=== PATIENT | male | born 1965 | race Hispanic/Latino ===

== ENCOUNTER 2016-10-06 13:10 | Day surgery (SDC) | payer OTHER ==
[~2016-10-06] VITALS: Ht 165.1 cm; Wt 74.8 kg
[~2016-10-06 13:10] MED LIST: 0.9% Sodium Chloride 1,000 ML IV SCH; ACET325T51 PO; CITA20TA11 PO; CYCL5TAB PO; NAPR500T5 PO; Sodium Chloride LOK Flush 10 mL Syringe IV PRN; TRAZ-115 PO; fentaNYL-PF 50 mCg/mL 2 mL Inj IVPUSH PRN
[2016-10-06 13:51] VITALS: BP 127/93; PULSE 78; RESP 14; O2SAT 96
[2016-10-06 15:15] VITALS: BP 132/83; PULSE 82; RESP 16; O2SAT 94
[2016-10-06 15:25] VITALS: BP 134/85; PULSE 87; RESP 16; O2SAT 95
--- NOTE | 2016-10-06 15:53 | ENDO ---
[address] [address] ENDOSCOPY PROCEDURE PATIENT: LONG PAREDES : 1965 MR#: [id number] ADMIT: 10/06/2016 JOB ID: [id number] DATE OF SERVICE: 10/06/2016 PROCEDURE PERFORMED: Colonoscopy. INDICATIONS: Screening. ASA CLASSIFICATION: The patient's ASA classification is II. MALLAMPATI SCORE: Mallampati score was 2. MEDICATIONS: 1. Versed 5 mg. 2. Fentanyl 100 mcg. INSTRUMENT USED: [id number]. PREPARATION QUALITY: Good. PROCEDURE DETAILS: After informed consent was obtained, the patient was brought into the GI suite, where he was placed on oxygen via nasal cannula and monitored with continuous pulse oximeter, telemetry, and blood pressure monitoring. A time-out was performed. Then, he was placed in the left lateral decubitus position and medications were administered for sedation. Digital rectal exam was performed which was unremarkable. The colonoscope was then inserted into the rectum and advanced under direct visualization to the cecum, which was identified by the presence of the ileocecal valve and appendiceal orifice. Once the cecum was reached, the colonoscope was withdrawn back into the rectum, as the mucosa and lumen were examined. In the rectum, retroflexion was performed. Following retroflexion, remaining air in the rectum was suctioned, and procedure was completed. FINDINGS: 1. In the ascending colon, there was an approximately 4 mm sessile polyp that was removed with a cold snare. 2. Just distal to this polyp there was a diminutive polyp that was removed with cold biopsy forceps. 3. In the transverse colon, there was an approximately 6 mm sessile polyp that was removed with a hot snare. A few scattered diverticula were seen in the sigmoid colon. 4. Retroflexed views in the rectum revealed small internal hemorrhoids. IMPRESSION: 1. Two ascending colon polyps. 2. Transverse colon polyp. 3. Sigmoid diverticulosis. 4. Small internal hemorrhoids. RECOMMENDATIONS: 1. Avoid NSAIDs and anticoagulants for 72 hours. 2. Fiber-rich diet. 3. Repeat colonoscopy pending polyp pathology results. COMPLICATIONS: None. ESTIMATED BLOOD LOSS: Less than 5 mL.
--- NOTE | 2016-10-09 12:36 | PATH ---
SURGICAL PATHOLOGY Attending Physician:Kinza Jansen CASE STATUS: Signed Out PATIENT NAME: LOGN PAREDES PID: [id number] : 1965 DATE COLLECTED:10/06/2016 22:44 SPECIMEN: 1: Colon, Biopsy 2: Colon, Biopsy CLINICAL HISTORY: 1). ASCENDING POLYPS 2). TRANSVERSE FINAL DIAGNOSIS: 1.ASCENDING COLON POLYPS: TUBULAR ADENOMA INVOLVING BOTH BIOPSY FRAGMENTS. 2.TRANSVERSE COLON POLYPS: TUBULAR ADENOMA INVOLVING OTH BIOPSY FRAGMENTS. ICD10 CODE D12.2 GROSS DESCRIPTION: The specimen is received in two formalin filled containers labeled with the patient's name. 1). The specimen is sublabeled "ascending polyp" and consists of 2 portions of tissue which aggregate to 0.3 x 0.3 x 0.3 CM. The specimen is entirely submitted in cassette 1A. 2). The specimen is sublabeled "transverse" and consists of 2 portions of tissue which aggregate to 0.3 x 0.3 x 0.2 CM. The specimen is entirely submitted in cassette 2A. 10/07/2016 [facility] MICRO DESCRIPTION: See diagnosis. ICD-9 CODES: CPT CODES: 1: 77055 2: 29532 Electronically Signed Out Gianfranco Henry MD [facility] Pathology [facility] [address], [place] [address] Technical component performed at [facility], [facility] [address], [place], [address]
== END 2016-10-06 23:59 | disposition home or self-care (01) ==
LOC: END 13:10
PROVIDERS: ATTEND Internal Medicine Gastroenterology
DX: Z12.11 Encounter for screening for malignant neoplasm of colon (principal); D12.2 Benign neoplasm of ascending colon; D12.3 Benign neoplasm of transverse colon; K57.30 Diverticulosis of large intestine without perforation or abscess without bleeding; K64.8 Other hemorrhoids; Z79.899 Other long term (current) drug therapy
CPT/HCPCS: 45385; J2250; J7030

== ENCOUNTER 2016-10-27 21:23 | Emergency (ER) | payer OTHER ==
[~2016-10-27] VITALS: Ht 165.1 cm; Wt 75.0 kg
[~2016-10-27 21:23] MED LIST changes: -0.9% Sodium Chloride 1,000 ML IV SCH; -Sodium Chloride LOK Flush 10 mL Syringe IV PRN; -fentaNYL-PF 50 mCg/mL 2 mL Inj IVPUSH PRN
[2016-10-27 21:25] VITALS: BP 146/95; PULSE 75; RESP 16; O2SAT 97
--- NOTE | 2016-10-27 22:19 | ED.REPORT ---
HPI-Back Pain 40 and Over Date of Service Oct 27, 2016 ED Provider: Garfield Grimaldo MD Patient is a 51 year old male who presents to the ED complaining of low back pain that began 3 weeks ago, increasing in severity today. He states that the pain is most severe on the right and that is radiates to his pelvis. Patient states that 3 weeks ago he was carrying a garbage can at work and almost fell to the ground, and it was after this incident that his back pain began. He denies radiation down his legs or numbness/weakness in his extremities. He also had a colonoscopy 3-4 weeks ago. The patient denies dysuria, hematuria, abdominal pain, diarrhea, nausea, vomiting, or fever. Nursing Notes Stated Complaint: BACK PAIN Chief Complaint: Back Pain or Injury Nursing Notes Reviewed: Yes Allergies: Coded Allergies: No Known Drug Allergies (Verified Allergy, Unknown, 10/27/16) Scheduled Citalopram (Citalopram) 20 Mg Tablet 20 MG PO DAILY Methocarbamol (Robaxin-750) 750 Mg Tablet 1-2 TAB PO QID Trazodone (Trazodone) 50 Mg Tablet 50 MG PO HS Scheduled PRN Acetaminophen (Acetaminophen) 325 Mg Tablet 1,000 MG PO Q4H PRN PRN For Fever Cyclobenzaprine (Cyclobenzaprine) 5 Mg Tablet 5 MG PO TID PRN PRN Spasm Naproxen (Naproxen) 500 Mg Tablet.dr 500 MG PO BID PRN PRN For Pain Naproxen (Naprosyn) 500 Mg Tablet 500 MG PO BID PRN PRN For Pain Tramadol (Tramadol) 50 Mg Tablet 100 MG PO HS PRN PRN For Pain General Time Seen by MD: 22:18 Chief Complaint Back pain Hx Obtained From: Patient, Other family... Arrived By: Walk-in Sudden in Onset?: No Onset Occurred: More than a week ago... (3 weeks) Symptom Duration: Since onset Location: : Generalized Quality: Painful Severity: Current: Moderate Severity: Maximum: Moderate Recent Healthcare: No recent doctor visit, No recent hospitalization Similar Sx Previous: No Past Medical History Past Medical History arthritis Reports: GERD, Hypertension Past Surgical History colonoscopy Smoking History Never Smoker Social History Alcohol Use: "Social" (rare) Other Social History: Good social support, Local resident Ambulatory Status Independent Review of Systems Constitutional: Denies: Fever GI: Denies: Abdominal pain, Diarrhea, Nausea, Vomiting Male: Denies Dysuria, Denies Flank pain Musculoskeletal: Reports: Back pain, Denies: Extremity pain Neurologic: Denies: Numbness, Weakness Complete sys rev & neg: except as marked. Physical Exam Initial Vital Signs Vital Signs (First) Date Time Temp Pulse Resp B/P Pulse Ox O2 Delivery O2 Flow Rate FiO2 10/27/16 21:25 36 75 16 146/95 97 10/27/16 23:49 Room Air Initial VS: Reviewed Head / Eyes: Atraumatic, Normocephalic, PERRL ENT: Conjunctiva normal, No scleral icterus Neck: Supple, Full range of motion Skin: Warm, Dry, No cyanosis Psychiatric: Mood/affect normal, Behavior normal, Normal thought content General/Constitutional: Awake, Alert, No acute distress Respiratory / Chest: No respiratory distress, No stridor Cardiovascular: Heart rate NL, Regular rhythm Abdomen: Soft, Non-tender Back: Atraumatic, No midline vertebral tend Flank / Spine / Paraspinal: Positive: Lumbar paraspinal tend... Good range of motion, guarded on flexion, but bearing weight. Neurologic: Oriented X3, Speech NL, No motor deficits, No sensory deficits Lower Extremity / Pelvis / MS: Full range of motion, No deformity, Neurologic intact, Vascular intact Upper Extremity / MS: Full range of motion, No deformity, Neurologic intact, Vascular intact Interpretation & Diagnostics Lab Results Interpretation Test 10/27/16 22:50 Urine Color Yellow (YELLOW) Urine Appearance Clear (CLEAR,HAZY) Urine pH 5.5 (5.0-8.0) Urine Specific [place] 1.025 (1.003-1.035) Urine Protein Negativemg/dL (NEG,TRACE) Urine Glucose (UA) Negativemg/dL (NEGATIVE) Urine Ketones Negativemg/dL (NEGATIVE) Urine Occult Blood Negative (NEGATIVE) Urine Nitrite Negative (NEGATIVE) Urine Bilirubin Negative (NEGATIVE) Urine Urobilinogen Normalmg/dL (NORMAL) Urine Leukocyte Esterase Negative (NEGATIVE) Urine RBC 0-2/hpf (0-2) Urine WBC 0-5/hpf (0-5) Urine Epithelial Cells Occasional/hpf (NONE-MOD) Urine Crystals None seen (NONE SEEN) Urine Bacteria None/hpf (NONE-FEW) Urine Hyaline Casts None/lpf (NONE) Urine Granular Casts None seen (NONE SEEN) Urine Waxy Casts None seen (NONE SEEN) Urine Red Blood Cell Casts None seen (NONE SEEN) Urine White Blood Cell Casts None seen (NONE SEEN) Urine Mucus Present (None Seen) Urine Trichomonas None seen (NONE SEEN) Urine Yeast None (NONE SEEN) Urine Culture Reflexed Not indicated X-Ray Interpretation Xray Interpretation: Impression: No acute process or fracture. Study Performed: Lumbar Spine X-ray Interpretation / Wet Read by: Wet read ED physician Re-Eval/Medical Decision Med Decision/Clinical Course 51-year-old presents with three weeks of back pain after a relatively trivial injury where he is carrying a garbage can and slipped tweaking his back. He has muscular tenderness, no neurological problems, and x-rays that show degenerative disease but no acute findings, no metastases, and no subluxation. He is provided with methocarbamol and Naprosyn and tramadol for nighttime use. Follow-up with PCP and consider physical therapy. Source of Hx: Old records Re-Evaluation/Progress : Time of Eval: 23:36 Patient Status: Condition improved Re-Evaluation/Progress Note: Patient was informed that there was no acute process seen on x-ray. This is likely a muscular issue. Patient understands and agrees with the plan to be discharged home. Discharge instructions and follow-up discussed. All questions were addressed. Return to the ED warnings given. Counseled Regarding: Diagnosis, Lab results, Need for follow-up, When/why to return to ED Discharge & Departure Impression: Primary Impression: Low back pain Chronicity: acute Back pain laterality: right Sciatica presence: with sciatica presence unspecified Qualified Code: M54.5 - Low back pain Disposition: Home Discharge Condition All VS Reviewed: Yes Condition: Stable Patient Instructions: Acute Low Back Pain (ED) Additional Instructions: Follow-up with your doctor in the office. If this is persistent, you may need physical therapy, and your doctor must prescribe that. Continue Naprosyn twice daily. Stop cyclobenzaprine if you are using that currently. Substitute methocarbamol one to two tablets four times daily. You may use tramadol two tablets at night for pain. Give careful attention to your posture and mechanics at work. Do not bend over to lift. Always use your legs and hips to lift. Seguimiento con cuellar mdico en la oficina. Si esto es persistente, puede necesitar terapia fsica, y cuellar mdico debe recetarla. Contine Naprosyn dos veces al da. Pare cyclobenzaprine si usted est utilizando eso actualmente. Sustituir metocarbamol de heather a dos comprimidos cuatro veces al da. Usted puede usar tramadol dos comprimidos por la noche para el dolor. Preste atencin a cuellar postura y mecnica en el trabajo. No se doble para levantar. Siempre use melvi piernas y caderas para levantar. Referrals: Gaye Riggins (PCP) Scribe Attestation Portions of this note were transcribed by [place] De Dios. I, Dr. Grimaldo personally performed the history, physical exam and medical decision-making; I reviewed and confirmed the accuracy of the information in the transcribed note. Signed by: Nohemi Henriquez, 10/28/2016 0012 copies to: Gaye Riggins Christopher W MD Oct 27, 2016 22:19 [place] De Dios Oct 27, 2016 22:32
[2016-10-27] MEDS ORDERED: Ketorolac 30 mg/mL 2 mL Inj IM ONE (22:30)
[2016-10-27 23:11] LABS: APPEARANCE,URINE CLEAR (CLEAR,HAZY); COLOR,URINE YELLOW (YELLOW); OCCULT BLOOD,URINE NEGATIVE (NEGATIVE); PH,URINE 5.5 (5.0-8.0); UROBILINOGEN,URINE NORMAL (NORMAL)
[2016-10-27] MEDS ORDERED: NAPR500T PO (23:41)
[2016-10-27] MEDS ORDERED: TRAM50TA2 PO (23:41)
[2016-10-27] MEDS ORDERED: METH-313 PO (23:41)
[2016-10-27 23:49] VITALS: BP 122/74; PULSE 70; RESP 16; O2SAT 98
--- NOTE | 2016-10-28 08:55 | DRSVH ---
PROCEDURE: X-RAY LUMBAR SPINE, 2 OR 3 VIEW INDICATIONS: back pain 3 weeks TECHNIQUE: 3 views of the lumbar spine were acquired. COMPARISON: None. FINDINGS: Bones: 5 [id number] vertebrae are present. There is trace L2-L3 and L3-L4 retrolisthesis.. No vertebral body compression fractures. No suspicious bony lesions. Multilevel degenerative changes a re noted. Soft tissues: Overlying bowel gas pattern is normal. No suspicious soft tissue calcifications. IMPRESSION: No fracture. No acute osseous lesion. If symptoms and/or clinical suspicion for patholog y persists, evaluation with MRI may be helpful for further assessment. Dictated by: Ely Bales MD, PhD on 10/28/2016 at 8:53 Approved by: Ely Bales MD, PhD on 10/28/2016 at 8:53
== END 2016-10-27 23:51 | disposition home or self-care (01) ==
LOC: SED 21:23
DX: M54.5 Low back pain (principal); W18.49XA Other slipping, tripping and stumbling without falling, initial encounter; Y92.59 Other trade areas as the place of occurrence of the external cause; Y93.89 Activity, other specified; Y99.0 Civilian activity done for income or pay; K21.9 Gastro-esophageal reflux disease without esophagitis; I10 Essential (primary) hypertension
CPT/HCPCS: 72100; 81000; 96372; 99284; J1885

== ENCOUNTER 2017-04-13 17:36 | Emergency (ER) | payer OTHER ==
[~2017-04-13] VITALS: Ht 165.1 cm; Wt 77.3 kg
[~2017-04-13 17:36] MED LIST changes: +METH-313 PO; +NAPR500T PO; +TRAM50TA2 PO
[2017-04-13 17:48] VITALS: BP 158/106; PULSE 82; RESP 16; O2SAT 98
--- NOTE | 2017-04-13 23:32 | ED.REPORT ---
HPI-Abd Pain F 2 and Over Date of Service Apr 13, 2017 ED Provider: Boni Bae MD Pt is a 51 year old male with a hx of HTN presenting to the ED complaining of a headache onset 2 weeks ago worsened today. Associated symptoms include high blood pressure. He states that he has been taking his blood pressure medication regularly and denies any recent change. Denies any other symptoms at this time. BP is 158/102 currently. Nursing Notes Stated Complaint: HBP,HEADACHE Chief Complaint: Headache Nursing Notes Reviewed: Yes Allergies: Coded Allergies: No Known Drug Allergies (Verified Allergy, Unknown, 04/13/17) Scheduled Atenolol (Atenolol) 25 Mg Tablet 25 MG PO DAILY Citalopram (Citalopram) 20 Mg Tablet 20 MG PO DAILY Methocarbamol (Robaxin-750) 750 Mg Tablet 1-2 TAB PO QID Trazodone (Trazodone) 50 Mg Tablet 50 MG PO HS Scheduled PRN Acetaminophen (Acetaminophen) 325 Mg Tablet 1,000 MG PO Q4H PRN PRN For Fever Cyclobenzaprine (Cyclobenzaprine) 5 Mg Tablet 5 MG PO TID PRN PRN Spasm Naproxen (Naproxen) 500 Mg Tablet.dr 500 MG PO BID PRN PRN For Pain Naproxen (Naprosyn) 500 Mg Tablet 500 MG PO BID PRN PRN For Pain Tramadol (Tramadol) 50 Mg Tablet 100 MG PO HS PRN PRN For Pain General Time Seen by MD: 23:31 Chief Complaint Other (Headache) Hx Obtained from: Patient Arrived by: Walk-in Sudden in Onset?: No Onset Occurred: More than a week ago... (2 weeks) Symptom Duration: Since onset Progression since onset: Gradually worsening Severity: Current: Moderate Severity: Maximum: Severe Recent Healthcare: No recent doctor visit, No recent hospitalization Similar Sx Previous: No Past Medical History Past Medical History HTN Arthritis GERD Past Surgical History colonoscopy Smoking History Never Smoker Ambulatory Status Ambulatory Status: Independent Review of Systems Review of Systems Note: Reports: High blood pressure Constitutional: Denies: Fever, Weakness - generalized Respiratory: Denies: Wheezing Cardiovascular: Denies: Chest pain GI: Denies: Vomiting Complete sys rev & neg: except as marked. Neurologic: Reports: Headache Physical Exam Initial Vital Signs Vital Signs (First) Date Time Temp Pulse Resp B/P Pulse Ox O2 Delivery O2 Flow Rate FiO2 7/21/17 17:48 37.0 82 16 158/106 98 Room Air Initial VS: Reviewed, Vital signs abnormal Head / Eyes: Atraumatic, Normocephalic, PERRL ENT: Mucous membranes moist, Conjunctiva normal, No scleral icterus Neck: Supple, Non-tender, Full range of motion Extremities: Vascular intact, Neuro intact, No swelling, No tenderness Skin: Warm, Dry, No cyanosis Neurologic: Alert, Oriented, Nonfocal Psychiatric: Mood/affect normal, Behavior normal, Normal thought content General / Constitutional: Awake, Alert, No apparent distress, Well appearing, Well hydrated Respiratory / Chest: Breath sounds NL, Breath sounds = bilat, No respiratory distress, No rales, No rhonchi, No wheezing Cardiovascular: Heart rate NL, Regular rhythm, Heart sounds NL, Peripheral circulation NL Abdomen: Atraumatic, Soft, Non-tender Back: Atraumatic, Inspection NL Interpretation & Diagnostics Lab Results Interpretation Test 04/13/17 23:16 Hold Purple Top Tube Received (Received) Hold Blue Top Tube Received (Received) Hold [place] Top Tube Received (Received) Hold [place] Top Tube Received (Received) Re-Eval/Medical Decision Med Decision/Clinical Course 51-year-old male who has had intermittent headache related to elevated blood pressure over the last couple of weeks. He has been on hydrochlorothiazide as his single blood pressure control medicine. He was given clonidine and atenolol here with improvement. He will be discharged home with a prescription for atenolol. His headache is markedly improved without additional treatment. Re-Evaluation/Progress #1: Time of Eval: 23:50 Patient Status: Condition improved Re-Evaluation/Progress Note: Performed physical exam. Re-Evaluation/Progress #2: Time of Eval: 01:26 Patient Status: Condition improved Re-Evaluation/Progress Note: BP 143/104. Discussed plan for discharge. Counseled Regarding: Diagnosis, Lab results, Need for follow-up, When/why to return to ED Discharge & Departure Impression: Primary Impression: Labile hypertension Disposition: Home Discharge Condition All VS Reviewed: Yes Condition: Improved Patient Instructions: Hypertension (ED) Additional Instructions: Atenolol 25 mg by mouth daily in addition to your current hydrochlorothiazide. Monitor your blood pressure on a daily basis. Follow-up with your doctor as soon as possible to discuss hypertension and medication. Referrals: Pendergrast,Gaye L ETL DEVELOPER (PCP) Scribe Attestation Portions of this note were transcribed by Nancy Tavares. I, Dr. Bae personally performed the history, physical exam and medical decision-making; I reviewed and confirmed the accuracy of the information in the transcribed note. Signed by: Nohemi Ring, 04/14/2017 at 0139. Gaye Riggins Howard L MD Apr 13, 2017 23:32 NANCY TAVARES Apr 13, 2017 23:36
[2017-04-14 00:07] VITALS: BP 176/108; PULSE 69; RESP 17; O2SAT 97
[2017-04-14] MEDS ORDERED: ATEN25TA PO (00:07)
[2017-04-14] MEDS ORDERED: cloNIDine 0.1 mg Tablet PO ONE (00:40)
[2017-04-14 01:57] VITALS: BP 142/96; PULSE 60; RESP 16; O2SAT 97
== END 2017-04-14 01:50 | disposition home or self-care (01) ==
LOC: SED 17:36
DX: R51 Headache (principal); I10 Essential (primary) hypertension